=== PATIENT | male | born 1995 | race Caucasian/White ===

== ENCOUNTER 2017-02-12 21:17 | Emergency (ER) | payer OTHER ==
[~2017-02-12] VITALS: Ht 190.5 cm; Wt 75.0 kg
[2017-02-13] MEDS ORDERED: NAPROXEN 250 MG TAB PO ONE (00:15)
[2017-02-13] MEDS ORDERED: NORCO, ANEXSIA 5/325MG TABLET (HYDROcodone/ACETAMINOPHEN) PO ONE (00:15)
[2017-02-13] MEDS ORDERED: NAPR500T PO (00:38)
--- NOTE | 2017-02-13 00:49 | REP ---
Clinical: Trauma. Fall . Technique: Internal rotation, external rotation, and Y view the shoulder . Findings: No acute fracture or dislocation. The acromioclavicular and glenohumeral joints are intact. No periarticular calcifications or degenerative changes are appreciated. Sub acromial space is normal. Surrounding soft tissues are unremarkable. Evidence for prior surgery with lucency in the proximal humeral metaphysis. Impression: Normal Right shoulder radiographs. Signed by Weston Montero MD 02/13/2017 12:41 A
[2017-02-13 00:50] VITALS: BP 132/68
== END 2017-02-13 00:52 | disposition home or self-care (01) ==
LOC: M ED 22:37
DX: S46.911A Strain of unspecified muscle, fascia and tendon at shoulder and upper arm level, right arm, initial encounter (principal); W10.8XXA Fall (on) (from) other stairs and steps, initial encounter; Y92.099 Unspecified place in other non-institutional residence as the place of occurrence of the external cause; Y93.89 Activity, other specified; Y99.9 Unspecified external cause status; F17.200 Nicotine dependence, unspecified, uncomplicated